=== PATIENT | female | born 1955 | race Caucasian/White ===

== ENCOUNTER → 2021-06-07 | Outpatient (CLI) | payer MEDICARE ==
[~2021-06-07] MED LIST: AUGMENTIN 875-1 EACH PO; AZELASTINE137 MCG/0.; CARDIZEM CD120 MG PO; CRESTOR 10 MG T10 MG PO; CYMBALTA60 MG PO; FISH OIL 1,0001 EACH PO; FLONASE 0.05% N16 GM; JANUVIA100 MG PO; LISINOPRIL-HCT1 EACH PO; MELATONIN3 MG PO; SYNTHROID75 MCG PO; TAMIFLU 75 MG C75 MG PO; VOLTAREN EC 7575 MG PO; WELLBUTRIN XL150 M1 PO; ZANTAC150 MG PO; ZITHROMAX250 MG PO
== END ==
LOC: MAMO 09:18
DX: Z12.31 Encounter for screening mammogram for malignant neoplasm of breast (principal)
CPT/HCPCS: 77063; 77067